=== PATIENT | female | born 1960 | race Caucasian/White ===

== ENCOUNTER 2018-02-24 13:55 | Inpatient (IN) | payer MEDICARE, OTHER ==
[~2018-02-24] VITALS: Ht 170.2 cm; Wt 84.1 kg
[2018-02-24 14:19] LABS: BASOPHILS # (AUTO) 0.1 X10'3 (0-0.2)
[2018-02-24 14:24] LABS: BASOPHILS % (AUTO) 0.6 % (0-1); EOSINOPHILS # (AUTO) 0.3 X10'3 (0-0.9); EOSINOPHILS % (AUTO) 2.9 % (0-6); HEMATOCRIT 41.4 % (35.0-45.0); LYMPHOCYTES # (AUTO) 3.2 X10'3 (1.1-4.8); LYMPHOCYTES % (AUTO) 33.7 % (21-51); MEAN CORPUSCULAR HEMOGLOBIN 27.8 PG (27.0-31.0); MEAN CORPUSCULAR HGB CONC 33.9 % (33.0-36.5); MEAN CORPUSCULAR VOLUME 82.1 FL (78-98); MEAN PLATELET VOLUME 8.6 FL (7.4-10.4); MONOCYTES # (AUTO) 0.8 X10'3 (0-0.9); MONOCYTES % (AUTO) 8.4 % (2-12); NEUTROPHILS # (AUTO) 5.2 X10'3 (1.8-7.7); NEUTROPHILS % (AUTO) 54.4 % (42-75); PLATELET COUNT 293 X10'3 (140-440); RED BLOOD COUNT 5.04 X10'6 (4.20-5.60); RED CELL DISTRIBUTION WIDTH 13.9 % (11.5-14.5); WHITE BLOOD COUNT 9.5 X10'3 (4.5-11.0)
[2018-02-24 14:30] LABS: PARTIAL THROMBOPLASTIN TIME 26 SECONDS (22-32)
[2018-02-24] MEDS ORDERED: LORazepam 2 mg/ml vial IV ONE (14:30)
[2018-02-24 14:35] LABS: ALANINE AMINOTRANSFERASE 33 U/L (12-78); ALBUMIN 3.7 G/DL (3.4-5.0); ALBUMIN/GLOBULIN RATIO 0.8 (1.1-1.5); ALKALINE PHOSPHATASE 96 IU/L (46-116); ANION GAP 11 (8-16); ASPARTATE AMINO TRANSFERASE 26 U/L (10-37); BILIRUBIN,TOTAL 0.3 MG/DL (0.1-1.0); BLOOD UREA NITROGEN 15 MG/DL (7-18); BUN/CREATININE RATIO 16.7 (6.6-38.0); CALCIUM 9.6 MG/DL (8.5-10.1); CHLORIDE 104 MMOL/L (99-107); GLUCOSE 95 MG/DL (70-104); POTASSIUM 3.9 MMOL/L (3.5-5.1); SODIUM 140 MMOL/L (135-145); TOTAL CARBON DIOXIDE 25.3 MMOL/L (24-32); TOTAL PROTEIN 8.1 G/DL (6.4-8.2); eGFR 65 ML/MIN
[2018-02-24 14:37] LABS: TROPONIN I < 0.04 NG/ML (0.0-0.05)
[2018-02-24] MEDS ORDERED: aspirin 325mg tablet PO ONE (15:10)
[2018-02-24] MEDS ORDERED: magnesium 4gm in 100ml NS 100 ML IV PRN (16:00)
[2018-02-24] MEDS ORDERED: magnesium Cl slow-release 64mg tablet PO PRN (16:00)
[2018-02-24] MEDS ORDERED: bisacodyl 10mg suppository rectal RC PRN (16:00)
[2018-02-24] MEDS ORDERED: acetaminophen 325mg tablet PO PRN (16:00)
[2018-02-24] MEDS ORDERED: magnesium hydroxide 30ml (MOM) UD suspension PO PRN (16:00)
[2018-02-24] MEDS ORDERED: magnesium 1gm/100ml D5W IVPB 100 ML IV PRN (16:00)
[2018-02-24] MEDS ORDERED: ondansetron/PF 4mg/2ml inj IV PRN (16:00)
[2018-02-24] MEDS ORDERED: mag hydrox/Alum hydrox/simeth 30ml oral suspension PO PRN (16:00)
[2018-02-24] MEDS ORDERED: potassium Cl 20 mEq SR tablet PO PRN ×2 (16:00)
[2018-02-24] MEDS ORDERED: potassium Cl 40MEQ/NS 500ml 500 ML IV PRN ×2 (16:00)
[2018-02-24] MEDS ORDERED: ATOR40TA PO (16:05)
[2018-02-24] MEDS ORDERED: LORazepam 2 mg/ml vial IV PRN (16:10)
[2018-02-24] MEDS ORDERED: LOSA25TA96 PO (16:12)
[2018-02-24] MEDS ORDERED: PRAM0.129 PO (16:22)
[2018-02-24] MEDS ORDERED: IBUP-1985 PO (16:24)
[2018-02-24] MEDS ORDERED: NAPR-56 PO (16:25)
[2018-02-24] MEDS ORDERED: DIPH25CA83 PO (16:26)
[2018-02-24] MEDS ORDERED: NORT25CA PO (16:31)
[2018-02-24] MEDS ORDERED: BUPR150T27 PO (16:31)
[2018-02-24] MEDS ORDERED: BUTA-281 PO (16:32)
[2018-02-24] MEDS ORDERED: [UNRECOGNIZED DRUG - CODE] PO (16:34)
[2018-02-24] MEDS ORDERED: ACETAMINOP PO PRN (16:55)
[2018-02-24] MEDS ORDERED: ISOMETHEPT PO PRN (16:55)
[2018-02-24] MEDS ORDERED: diphenhydrAMINE 25mg capsule PO PRN (16:55)
[2018-02-24] MEDS ORDERED: [UNRECOGNIZED DRUG - OTHER] PO PRN (16:55)
[2018-02-24] MEDS ORDERED: butalbital/acetaminophen/caffeine (Fioricet) tablet PO PRN (16:55)
[2018-02-24] MEDS ORDERED: DICHLPHN PO PRN (16:55)
[2018-02-24 17:29] LABS: ETHANOL < 0.010 GM/DL (0.0-0.010)
[2018-02-24 17:59] LABS: CLARITY,URINE SLIGHTLY CLOUDY (Clear); COLOR,URINE YELLOW (Yellow); GLUCOSE, URINE NEGATIVE (Neg); KETONES,URINE NEGATIVE (Neg); LEUKOCYTE ESTERASE ,URINE NEGATIVE (Neg); NITRITES, URINE NEGATIVE (Neg); OCCULT BLOOD,URINE NEGATIVE (Neg); PH,URINE 5.5 (4.8-8.0); PROTEIN,URINE NEGATIVE (Neg); UA COLLECTION TYPE VOIDED; UROBILINOGEN,URINE 0.2 E.U/dL (0.2-1.0)
[2018-02-24 18:07] LABS: BACTERIA,URINE FEW /HPF (Neg); HYALINE CASTS 0-3 /LPF (NEGATIVE); MUCUS STRANDS MODERATE /LPF (Neg); RBC,URINE 0-2 /HPF (0-2); SQUAMOUS EPITHELIAL CELL,UR MODERATE /LPF (FEW); WBC,URINE 0-4 /HPF (0-4)
[2018-02-24 18:18] LABS: URINE AMPHETAMINE SCREEN NEGATIVE (Neg); URINE BARBITUATE SCREEN NEGATIVE (Neg); URINE BENZODIAZEPINES SCREEN NEGATIVE (Neg); URINE CANNABINOID SCREEN NEGATIVE (Neg); URINE COCAINE SCREEN NEGATIVE (Neg); URINE METHADONE SCREEN NEGATIVE (Neg); URINE OPIATE SCREEN NEGATIVE (Neg); URINE PHENCYCLIDINE SCREEN NEGATIVE (Neg)
[2018-02-24 18:51] VITALS: BP 133/75
[2018-02-24] MEDS: buPROPion 75mg tablet PO SCH (20:33)
[2018-02-24] MEDS: pramipexole 0.25mg tablet PO SCH (20:33)
[2018-02-24] MEDS: losartan 25mg tablet PO SCH (20:33)
[2018-02-24] MEDS: docusate sod 100mg capsule PO SCH (20:33)
[2018-02-24] MEDS: atorvastatin 20mg tablet PO SCH (20:33)
[2018-02-24] MEDS: potassium cl 20mEq in 1/2 NS 1,000 ML IV SCH (20:37)
[2018-02-24] MEDS ORDERED: nortriptyline 25mg capsule PO SCH (21:00)
[2018-02-24 22:00] VITALS: BP 144/92
[2018-02-25 02:00] VITALS: BP 117/75
[2018-02-25 05:32] LABS: BASOPHILS % (AUTO) 0.6 % (0-1); EOSINOPHILS # (AUTO) 0.3 X10'3 (0-0.9); EOSINOPHILS % (AUTO) 4.9 % (0-6); HEMATOCRIT 36.9 % (35.0-45.0); HEMOGLOBIN 12.3 g/dl (12.0-16.0); LYMPHOCYTES # (AUTO) 2.1 X10'3 (1.1-4.8); LYMPHOCYTES % (AUTO) 33.7 % (21-51); MEAN CORPUSCULAR HEMOGLOBIN 27.2 PG (27.0-31.0); MEAN CORPUSCULAR HGB CONC 33.4 % (33.0-36.5); MEAN CORPUSCULAR VOLUME 81.5 FL (78-98); MEAN PLATELET VOLUME 8.6 FL (7.4-10.4); MONOCYTES # (AUTO) 0.7 X10'3 (0-0.9); MONOCYTES % (AUTO) 11.1 % (2-12); NEUTROPHILS # (AUTO) 3.1 X10'3 (1.8-7.7); NEUTROPHILS % (AUTO) 49.7 % (42-75); PLATELET COUNT 234 X10'3 (140-440); RED BLOOD COUNT 4.52 X10'6 (4.20-5.60); RED CELL DISTRIBUTION WIDTH 13.9 % (11.5-14.5); WHITE BLOOD COUNT 6.3 X10'3 (4.5-11.0)
[2018-02-25 05:54] LABS: ALANINE AMINOTRANSFERASE 26 U/L (12-78); ALBUMIN 2.9 G/DL (3.4-5.0); ALBUMIN/GLOBULIN RATIO 0.7 (1.1-1.5); ALKALINE PHOSPHATASE 74 IU/L (46-116); ANION GAP 8 (8-16); ASPARTATE AMINO TRANSFERASE 23 U/L (10-37); BILIRUBIN,TOTAL 0.4 MG/DL (0.1-1.0); BLOOD UREA NITROGEN 16 MG/DL (7-18); BUN/CREATININE RATIO 18.6 (6.6-38.0); CALCIUM 8.6 MG/DL (8.5-10.1); CHLORIDE 106 MMOL/L (99-107); CHOL/HDL RATIO 5.3 (0.00-4.99); CHOLESTEROL 170 MG/DL (0-200); CREATININE 0.86 MG/DL (0.40-0.90); GLUCOSE 90 MG/DL (70-104); HDL CHOLESTEROL 32 MG/DL (35-60); LDL CHOLESTEROL 115 MG/DL (50-100); MAGNESIUM 1.7 MG/DL (1.5-2.4); SODIUM 140 MMOL/L (135-145); TOTAL CARBON DIOXIDE 26.5 MMOL/L (24-32); TRIGLYCERIDES 203 MG/DL (20-135); eGFR 68 ML/MIN
[2018-02-25 06:00] VITALS: BP 135/75
[2018-02-25] MEDS ORDERED: pneumococcal 23-VAL P-sac vacc 25 mcg/0.5ml vial IMVAC ONE (06:10)
[2018-02-25] MEDS: potassium cl 20mEq in 1/2 NS 1,000 ML IV SCH (06:17)
[2018-02-25] MEDS: K and/or MAG REPLACEMENT MC SCH (07:23)
[2018-02-25] MEDS: aspirin 325mg tablet, delayed-release (Ecotrin) PO SCH (07:42)
[2018-02-25] MEDS: atorvastatin 10mg tablet PO SCH (07:42)
[2018-02-25] MEDS: buPROPion 75mg tablet PO SCH (07:43)
[2018-02-25] MEDS: pramipexole 0.25mg tablet PO SCH ×3 (07:43→20:40)
[2018-02-25] MEDS: docusate sod 100mg capsule PO SCH ×2 (07:43→20:40)
[2018-02-25] MEDS: enoxaparin 40mg/0.4ml syringe SUBCUT SCH (07:44)
[2018-02-25 10:00] VITALS: BP_SYST 127; BP_SYST 140; BP_SYST 147; BP_DIAS 90; BP_DIAS 95; BP_DIAS 97
[2018-02-25 14:00] VITALS: BP 140/93
[2018-02-25] MEDS ORDERED: hydrOXYzine 25 MG tablet PO PRN (17:00)
[2018-02-25] MEDS: citalopram 20mg tablet PO SCH (17:23)
[2018-02-25 18:00] VITALS: BP 137/87
[2018-02-25] MEDS ORDERED: clonazePAM 0.5mg tablet PO SCH (20:00)
[2018-02-25] MEDS: atorvastatin 20mg tablet PO SCH (20:40)
[2018-02-25] MEDS: losartan 25mg tablet PO SCH (20:40)
[2018-02-25 22:00] VITALS: BP_SYST 119; BP_SYST 129; BP_SYST 142; BP_DIAS 76; BP_DIAS 82; BP_DIAS 96
[2018-02-25] MEDS ORDERED: mirtazapine 15mg tablet PO PRN (22:00)
[2018-02-26 06:00] VITALS: BP 129/82
[2018-02-26 06:48] LABS: ALANINE AMINOTRANSFERASE 30 U/L (12-78); ALBUMIN 3.1 G/DL (3.4-5.0); ALBUMIN/GLOBULIN RATIO 0.8 (1.1-1.5); ALKALINE PHOSPHATASE 83 IU/L (46-116); ANION GAP 5 (8-16); ASPARTATE AMINO TRANSFERASE 23 U/L (10-37); BILIRUBIN,TOTAL 0.5 MG/DL (0.1-1.0); BLOOD UREA NITROGEN 14 MG/DL (7-18); BUN/CREATININE RATIO 15.7 (6.6-38.0); CALCIUM 8.4 MG/DL (8.5-10.1); CHLORIDE 105 MMOL/L (99-107); CREATININE 0.89 MG/DL (0.40-0.90); GLUCOSE 95 MG/DL (70-104); MAGNESIUM 1.8 MG/DL (1.5-2.4); POTASSIUM 4.3 MMOL/L (3.5-5.1); SODIUM 135 MMOL/L (135-145); TOTAL CARBON DIOXIDE 25.5 MMOL/L (24-32); TOTAL PROTEIN 6.9 G/DL (6.4-8.2); eGFR 66 ML/MIN
[2018-02-26] MEDS: K and/or MAG REPLACEMENT MC SCH (08:00)
[2018-02-26] MEDS: citalopram 20mg tablet PO SCH (08:43)
[2018-02-26] MEDS: enoxaparin 40mg/0.4ml syringe SUBCUT SCH (08:44)
[2018-02-26] MEDS: pramipexole 0.25mg tablet PO SCH ×2 (08:44→13:38)
[2018-02-26] MEDS: docusate sod 100mg capsule PO SCH (08:44)
[2018-02-26] MEDS: atorvastatin 10mg tablet PO SCH (08:44)
[2018-02-26] MEDS: aspirin 325mg tablet, delayed-release (Ecotrin) PO SCH (08:45)
[2018-02-26 10:00] VITALS: BP_SYST 120; BP_SYST 125; BP_SYST 135; BP_SYST 146; BP_DIAS 80; BP_DIAS 90; BP_DIAS 95; BP_DIAS 96
== END 2018-02-26 17:15 | disposition home or self-care (01) | DRG 103 ==
LOC: ER 13:57 → ED HOLD 15:22 → OBSVTOIN 15:22 → ORTHO 4S 18:30
PROVIDERS: ADMIT Internal Medicine; ATTEND Family Medicine
DX: G43.409 Hemiplegic migraine, not intractable, without status migrainosus (principal); G81.94 Hemiplegia, unspecified affecting left nondominant side; F44.9 Dissociative and conversion disorder, unspecified; E78.5 Hyperlipidemia, unspecified; R06.02 Shortness of breath; I10 Essential (primary) hypertension; F41.9 Anxiety disorder, unspecified; Z86.73 Personal history of transient ischemic attack (TIA), and cerebral infarction without residual deficits; Z90.49 Acquired absence of other specified parts of digestive tract; Z90.710 Acquired absence of both cervix and uterus; Z23 Encounter for immunization; Z88.2 Allergy status to sulfonamides; Z79.899 Other long term (current) drug therapy
CPT/HCPCS: 36415; 70450; 70544; 70551; 71045; 80053; 80061; 80305; 80320; 81001; 82948; 83735; 84439; 84443; 84484; 85025; 85610; 85651; 85730; 87070; 90732; 92616; 93005; 93308; 93880; 96361; 96372; 96374; 97110; 97162; 97530; 99285; G0378; J1650; J2060

== ENCOUNTER 2018-04-28 12:56 | Emergency (ER) | payer MEDICARE ==
[~2018-04-28] VITALS: Ht 167.6 cm; Wt 89.5 kg
[~2018-04-28 12:56] MED LIST: ASPI-1265 PO; ATOR40TA PO; BUTA-281 PO; IBUP-1985 PO; LOSA25TA96 PO; NAPR-56 PO; NORT25CA PO; PRAM0.129 PO; VERA180T PO
[2018-04-28 13:33] LABS: BASOPHILS % (AUTO) 0.5 % (0-1); EOSINOPHILS # (AUTO) 0.3 X10'3 (0-0.9); EOSINOPHILS % (AUTO) 4.4 % (0-6); HEMATOCRIT 40.4 % (35.0-45.0); HEMOGLOBIN 13.4 g/dl (12.0-16.0); LYMPHOCYTES # (AUTO) 2.8 X10'3 (1.1-4.8); LYMPHOCYTES % (AUTO) 34.6 % (21-51); MEAN CORPUSCULAR HEMOGLOBIN 27.7 PG (27.0-31.0); MEAN CORPUSCULAR HGB CONC 33.2 % (33.0-36.5); MEAN CORPUSCULAR VOLUME 83.3 FL (78-98); MEAN PLATELET VOLUME 8.5 FL (7.4-10.4); MONOCYTES # (AUTO) 0.6 X10'3 (0-0.9); MONOCYTES % (AUTO) 7.7 % (2-12); NEUTROPHILS # (AUTO) 4.2 X10'3 (1.8-7.7); NEUTROPHILS % (AUTO) 52.8 % (42-75); PLATELET COUNT 290 X10'3 (140-440); RED BLOOD COUNT 4.86 X10'6 (4.20-5.60); RED CELL DISTRIBUTION WIDTH 14.4 % (11.5-14.5); WHITE BLOOD COUNT 7.9 X10'3 (4.5-11.0)
[2018-04-28 13:44] LABS: ALANINE AMINOTRANSFERASE 36 U/L (12-78); ALBUMIN 3.5 G/DL (3.4-5.0); ALBUMIN/GLOBULIN RATIO 0.9 (1.1-1.5); ALKALINE PHOSPHATASE 94 IU/L (46-116); ANION GAP 8 (8-16); ASPARTATE AMINO TRANSFERASE 19 U/L (10-37); BILIRUBIN,TOTAL 0.3 MG/DL (0.1-1.0); BLOOD UREA NITROGEN 17 MG/DL (7-18); CALCIUM 9.9 MG/DL (8.5-10.1); CHLORIDE 105 MMOL/L (99-107); CREATININE 1.06 MG/DL (0.40-0.90); GLUCOSE 104 MG/DL (70-104); POTASSIUM 4.6 MMOL/L (3.5-5.1); SODIUM 143 MMOL/L (135-145); TOTAL CARBON DIOXIDE 29.7 MMOL/L (24-32); TOTAL PROTEIN 7.2 G/DL (6.4-8.2); eGFR 54 ML/MIN
[2018-04-28 14:12] VITALS: BP 126/76
[2018-04-28 14:14] LABS: D-DIMER 0.31 MG/L FEU (0-0.50)
[2018-04-28 14:25] LABS: MAGNESIUM 1.7 MG/DL (1.5-2.4)
== END 2018-04-28 14:44 | disposition home or self-care (01) ==
LOC: ER 12:56
DX: R06.02 Shortness of breath (principal); R07.9 Chest pain, unspecified; E78.00 Pure hypercholesterolemia, unspecified; I10 Essential (primary) hypertension; Z88.2 Allergy status to sulfonamides; Z88.8 Allergy status to other drugs, medicaments and biological substances; Z79.82 Long term (current) use of aspirin; Z79.899 Other long term (current) drug therapy; Z86.73 Personal history of transient ischemic attack (TIA), and cerebral infarction without residual deficits; Z87.442 Personal history of urinary calculi; Z90.49 Acquired absence of other specified parts of digestive tract; Z98.890 Other specified postprocedural states; Z90.710 Acquired absence of both cervix and uterus
CPT/HCPCS: 36415; 71046; 80053; 83735; 83880; 85025; 85379; 99285